=== PATIENT | male | born 1945 | race Caucasian/White ===

== ENCOUNTER 2023-04-14 04:38 | Day surgery (SDC) | payer OTHER, BC ==
[2023-04-09 09:14] VITALS: BMI 28.5
[~2023-04-14 04:38] MED LIST: ACETAMINOPHEN 500 MG TABLET (FP) PO PRN; BUPIVACAINE HCL/PF 0.75% 10 ML VIAL NR ONE; LIDOCAINE 1% P/F 10 MG/ML VIAL INF ONE
[2023-04-14 06:15] VITALS: TEMP 97.8
[2023-04-14] MEDS ORDERED: LIDOCAINE HCL/PF 1% SDV 5ML VIAL ONE (07:16)
[2023-04-14] MEDS ORDERED: BUPIVACAINE HCL/PF 0.75% 10 ML VIAL ONE (07:16)
[2023-04-14] MEDS ORDERED: LIDOCAINE 1% P/F 10 MG/ML VIAL INF ONE (08:35)
[2023-04-14] MEDS ORDERED: BUPIVACAINE HCL/PF 0.75% 10 ML VIAL NR ONE ×2 (08:37)
[2023-04-14 08:57] VITALS: BP 141/75; PULSE 59; RESP 19
[2023-04-14] MEDS ORDERED: ACETAMINOPHEN 500 MG TABLET (FP) PO PRN (12:51)
== END 2023-04-14 09:15 | disposition home or self-care (01) ==
LOC: JASU-SURG 04:38
PROVIDERS: ATTEND Pain Medicine Pain Medicine
PROC: 3E0T33Z Introduction of Anti-inflammatory into Peripheral Nerves and Plexi, Percutaneous Approach (ICD-10-PCS; 2023-04-14)
PROC: 3E0T3BZ Introduction of Anesthetic Agent into Peripheral Nerves and Plexi, Percutaneous Approach (ICD-10-PCS; principal; 2023-04-14 08:00)
DX: M47.816 Spondylosis without myelopathy or radiculopathy, lumbar region (principal)
CPT/HCPCS: 76000-TC-FY

== ENCOUNTER 2023-05-19 04:02 | Day surgery (SDC) | payer OTHER, BC ==
[2023-05-14 13:44] VITALS: BMI 28.5
[2023-05-19] MEDS ORDERED: LIDOCAINE HCL/PF 1% SDV 5ML VIAL ONE (07:32)
[2023-05-19] MEDS ORDERED: BUPIVACAINE HCL/PF 0.5% (5MG/ML) 10 ML VIAL ONE (07:32)
[2023-05-19] MEDS ORDERED: TRIAMCINOLONE ACET 40MG/1ML VIAL ONE (07:32)
[2023-05-19] MEDS ORDERED: ACETAMINOPHEN 500 MG TABLET (FP) PO PRN (10:54)
[2023-05-19 12:02] VITALS: PULSE 80; RESP 16
[2023-05-19] MEDS: BUPIVACAINE HCL/PF 0.25% (2.5MG/ML) 10 ML VIAL IJ ONE (13:53)
[2023-05-19] MEDS: IOHEXOL 180 MG/1 ML ML IJ ONE (13:54)
[2023-05-19] MEDS: LIDOCAINE 1% P/F 10 MG/ML VIAL INF ONE (13:54)
[2023-05-19] MEDS: TRIAMCINOLONE ACETONIDE 40 MG/ML 10 ML VIAL IJ ONE ×2 (13:54→13:56)
[2023-05-19 14:44] VITALS: BP 120/70; TEMP 97
== END 2023-05-19 14:30 | disposition home or self-care (01) ==
LOC: JASU-SURG 04:02
PROVIDERS: ATTEND Pain Medicine Pain Medicine
PROC: 3E0U3BZ Introduction of Anesthetic Agent into Joints, Percutaneous Approach (ICD-10-PCS; 2023-05-19)
PROC: 3E0U33Z Introduction of Anti-inflammatory into Joints, Percutaneous Approach (ICD-10-PCS; principal; 2023-05-19 13:15)
DX: M53.3 Sacrococcygeal disorders, not elsewhere classified (principal)
CPT/HCPCS: 76000-TC-FY

== ENCOUNTER 2023-10-30 04:12 | Day surgery (SDC) | payer OTHER, BC ==
[2023-10-29 14:37] VITALS: BMI 28.1
[2023-10-30] MEDS ORDERED: LIDOCAINE HCL/PF 1% SDV 5ML VIAL ONE (07:26)
[2023-10-30] MEDS ORDERED: BUPIVACAINE HCL/PF 0.25% (2.5MG/ML) 10 ML VIAL ONE (07:38)
[2023-10-30] MEDS ORDERED: LIDOCAINE HCL/PF 2% SDV 5ML VIAL ONE (07:47)
[2023-10-30] MEDS ORDERED: ACETAMINOPHEN 500 MG TABLET (FP) PO PRN (08:39)
[2023-10-30 09:31] VITALS: RESP 16
[2023-10-30] MEDS: LIDOCAINE HCL/PF 2% SDV 5ML VIAL INF ONE (11:40)
[2023-10-30] MEDS: BUPIVACAINE HCL/PF 0.75% 10 ML VIAL NR ONE ×2 (11:42)
[2023-10-30 12:27] VITALS: BP 130/66; PULSE 56; TEMP 97.3
== END 2023-10-30 13:12 | disposition home or self-care (01) ==
LOC: JASU-SURG 04:12
PROVIDERS: ATTEND Pain Medicine Pain Medicine
PROC: 015D3ZZ Destruction of Femoral Nerve, Percutaneous Approach (ICD-10-PCS; principal; 2023-10-30 10:45)
DX: M25.562 Pain in left knee (principal)